=== PATIENT | male | born 1945 | race Caucasian/White ===

== ENCOUNTER 2018-07-27 15:57 | Emergency (ER) | payer MEDICARE ==
[~2018-07-27] VITALS: Ht 175.3 cm; Wt 70.3 kg
[2018-07-27 16:16] LABS: HEMATOCRIT 56.6 % (42.0-52.0); HEMOGLOBIN 18.9 gm/dL (14.0-18.0); MCH 31.7 pg (26.0-34.0); MCHC 33.5 g/dL (28.0-37.0); MCV 94.9 fL (80.0-100.0); MPV 7.2 fl. (7.2-11.1); NUCLEATED RBCS 0 /100WBC; PLATELET COUNT* 244 thou/uL (150-400); RBC 5.97 mil/uL (4.50-6.00); RDW-CV 13.4 % (10.5-14.5); WBC 32.4 thou/uL (4.0-11.0)
[2018-07-27 16:28] LABS: APTT 27.3 Seconds (25.0-31.3); CALCIUM 9.8 mg/dL (8.5-10.1); CREATININE 3.6 mg/dL (0.6-1.3); INR 1.1; POTASSIUM 3.7 mmol/L (3.5-5.1); PROTIME 11.1 Seconds (9.20-11.50)
[2018-07-27 16:30] LABS: URINE BILIRUBIN NEGATIVE (Negative); URINE BLOOD 3+ (Negative); URINE CLARITY CLEAR; URINE COLOR YELLOW; URINE GLUCOSE-RANDOM TRACE (Negative); URINE KETONES NEGATIVE (Negative); URINE LEUKOCYTES-REFLEX NEGATIVE (Negative); URINE NITRITE-REFLEX NEGATIVE (Negative); URINE PROTEIN 3+ (Negative); URINE SPECIFIC GRAVITY 1.025 (1.005-1.030); URINE UROBILINOGEN 0.2 E.U./dl (0.2-1.0)
[2018-07-27 16:46] LABS: AMP/METHAMP Negative (Negative); BARBITURATES Negative (Negative); BENZODIAZEPINES Negative (Negative); COCAINE Negative (Negative); METHADONE Negative (Negative); OPIATES Negative (Negative); PCP Negative (Negative); THC Negative (Negative)
[2018-07-27 16:48] LABS: ALBUMIN 4.6 g/dL (3.4-5.0); CK-MB MASS 1.7 ng/mL (<0.5-3.6); TOTAL BILIRUBIN 2.4 mg/dL (<0.1-1.0); TOTAL PROTEIN 9.2 g/dL (6.4-8.2); TROPONIN-I LEVEL 0.39 ng/mL (<0.06)
[2018-07-27 17:23] LABS: ABSOLUTE LYMPHOCYTES 1.6 thou/uL (0.8-5.3); ABSOLUTE MONOCYTES 2.9 thou/uL (0.0-1.2); ABSOLUTE NEUTROPHILS 27.9 thou/uL (1.6-8.1); PLATELET ESTIMATE ADEQUATE
[2018-07-27 17:34] LABS: CASTS None Seen /LPF (None Seen); CRYSTALS None Seen /LPF (None Seen); MUCUS None Seen strn/LPF (None Seen); SQUAMOUS NONE SEEN /LPF (0-3); URINE RBC >20 Many /HPF (0-2); URINE WBC-REFLEX None Seen /HPF (0-5)
[2018-07-27 17:35] LABS: BACTERIA-REFLEX None Seen /HPF (None Seen)
[2018-07-27 17:41] VITALS: BP 123/82
--- NOTE | 2018-07-28 10:23 | EKG ---
[place] [address] ELECTROCARDIOGRAM REPORT Name: MADISON JOSUE Room: [facility]#: [id number] Admission: 07/27/18 Attend Phys: Discharge: 07/27/18 Date of : 47 Report #: [id number] THIS REPORT FOR: //name// [facility] ED Test Date: 2018-07-27 Test Time: 16:03:00 Pat Name: MADISON JOSUE Department: Room: Gender: Computer Repair Technician: Jerrell CRAFT : 1945 Requested By: Simon Rick Order Number: [id number] MD: Kris Traylor Measurements Intervals Watson Rate: 116 P: 61 MS: 172 QRS: 57 QRSD: 117 T: 237 QT: 306 QTc: 426 Interpretive Statements Sinus tachycardia Biatrial enlargement LVH with secondary repolarization abnormality Anterior Q waves, possibly due to LVH No previous ECG available for comparison Electronically Signed On 07-28-2018 10:22:51 AUTOTRANSFUSIONIST by Kris Traylor [email or web address] <ELECTRONICALLY SIGNED> By: Kris Traylor MD, [facility] 07/28/18 1022 1603 160 Kris Traylor MD, FACC /EPI
== END 2018-07-27 17:46 | disposition short-term general hospital (02) ==
LOC: M.ERS 15:57
PROVIDERS: Emergency Medicine Emergency Medical Services
DX: I61.9 Nontraumatic intracerebral hemorrhage, unspecified (principal)